=== PATIENT | female | born 1960 | race African-American/Black ===

== ENCOUNTER 2019-02-22 15:13 | Emergency (ER) | payer MEDICAID, OTHER ==
[~2019-02-22] VITALS: Ht 160 cm; Wt 58.0 kg
[2019-02-22] MEDS ORDERED: ACETAMINOPHEN 500MG TABLET PO ONE (16:15)
[2019-02-22] MEDS ORDERED: ASPIRIN 81MG TABLET PO ONE (16:15)
[2019-02-22 16:53] LABS: BASOPHILS % 0.4 % (0.0-2.0); EOSINOPHILS % 1.2 % (0.0-5.0); HEMATOCRIT. 36.8 % (36.0-48.0); HEMOGLOBIN. 12.2 g/dL (12.0-16.0); LYMPHOCYTES % 60.6 % (20.0-50.0); MEAN CORPUSCULAR HEMOGLOBIN 29.2 pg (28.0-32.0); MEAN CORPUSCULAR VOLUME 87.9 fL (81.0-99.0); MONOCYTES % 6.5 % (2.0-8.0); NEUTROPHILS % 31.3 % (40.0-76.0); PLATELET 227 x1000/uL (130-400); RED BLOOD CELL COUNT 4.19 mill/uL (4.2-5.4); RED CELL DISTRIBUTION WIDTH 12.9 % (11.6-14.6)
[2019-02-22 17:01] LABS: CHLORIDE 108 mEq/L (98-107)
[2019-02-22 18:15] VITALS: BP 152/80
== END 2019-02-22 18:17 | disposition home or self-care (01) ==
LOC: ER 15:35
DX: R07.89 Other chest pain (principal); I10 Essential (primary) hypertension; Z98.890 Other specified postprocedural states
CPT/HCPCS: 36415; 71045; 84484; 93005; 99284